=== PATIENT | female | born 1975 | race Two or more races ===

== ENCOUNTER 2024-11-25 07:46 | Outpatient (CLI) | payer OTHER ==
--- NOTE | 2024-11-25 09:13 | DVH ---
US US GUIDANCE FOR NEEDLE PLACEME, HISTORY: FIBROCYSTIC BREAST, BREAST LESIONS @ 3 o' CLOCK PROCEDURE: Informed consent was obtained. The patient was positioned supine on the table, and limited US was performed of the left breast. The skin overlying the biopsy site was prepped with chlorhexid ine which was allowed to dry. Time out was performed. The entry site was anesthetized with 1% lidocai ne. A 16 gauge Biopince needle was advanced into the mass. Multiple core biopsy samples were obtained using the 16 gauge biopsy needle. The samples were sent to formalin to pathology for analysis. A mar [email or web address] clip was deployed in the mass. Imaging through the biopsy site was performed. No immediate compli cation was identified. FINDINGS: Intra-procedural images show the biopsy needle at the lesion. No significant post biopsy h emorrhage is identified. IMPRESSION: US-guided biopsy of left breast lesion at 3 o clock with a clip placed afterwards. Pathology results pending.
== END 2024-11-25 17:00 | disposition home or self-care (01) ==
LOC: XYW 07:46
DX: N63.25 Unspecified lump in the left breast, overlapping quadrants (principal); N60.02 Solitary cyst of left breast; G47.00 Insomnia, unspecified; F41.9 Anxiety disorder, unspecified; F43.10 Post-traumatic stress disorder, unspecified; F33.9 Major depressive disorder, recurrent, unspecified; Z79.899 Other long term (current) drug therapy; Z88.8 Allergy status to other drugs, medicaments and biological substances; Z91.010 Allergy to peanuts
CPT/HCPCS: 19083; 88305; 88342; A4648; 76642; 76942